=== PATIENT | male | born 1980 | race Caucasian/White ===

== ENCOUNTER 2018-06-20 17:58 | Inpatient (IN) | payer SELFPAY ==
--- NOTE | 2018-06-20 18:40 | ER Document Report ---
ED Medical Screen (RME) - General Chief Complaint: Abdominal Pain Stated Complaint: ABDOMINAL PAIN Time Seen by Provider: 06/20/18 18:35 Mode of Arrival: Medic Information source: Patient, Emergency Med Personnel Notes: Patient presents emergency department with complaints of abdominal pain for the past 3 days. Patient reports history of pancreatitis. Patient has had EtOH today. A few shots. Patient reports he also noted blood in his stool today. Abdomen is soft tender around the umbilicus. Denies fever diarrhea. Reports vomited this morning. I have greeted and performed a rapid initial assessment of this patient. A comprehensive ED assessment and evaluation of the patient, analysis of test results and completion of the medical decision making process will be conducted by additional ED providers. Dictation of this chart was performed using voice recognition software; therefore, there may be some unintended grammatical errors. TRAVEL OUTSIDE OF THE [place] IN LAST 30 DAYS: No - Related Data Allergies/Adverse Reactions: No Known Allergies Allergy (Unverified 06/20/18 18:34) Physical Exam - Vital signs Vitals: Temp Pulse Resp BP Pulse Ox 97.4 F 77 20 146/100 H 100 06/20/18 18:32 06/20/18 18:32 06/20/18 18:32 06/20/18 18:32 06/20/18 18:32 Course - Vital Signs Vital signs: Temp Pulse Resp BP Pulse Ox 97.4 F 77 20 146/100 H 100 06/20/18 18:32 06/20/18 18:32 06/20/18 18:32 06/20/18 18:32 06/20/18 18:32
[2018-06-20 19:21] LABS: HEMATOCRIT 42.9 % (37.9-51.0); HEMOGLOBIN 14.9 g/dL (13.5-17.0); MEAN CORPUSCULAR HEMOGLOBIN 32.6 pg (27.0-33.4); MEAN CORPUSCULAR HGB CONC 34.7 g/dL (32.0-36.0); MEAN CORPUSCULAR VOLUME 94 fl (80-97); PLATELET COUNT 354 10^3/uL (150-450); RED BLOOD COUNT 4.56 10^6/uL (4.35-5.55); RED CELL DISTRIBUTION WIDTH 12.1 % (11.5-14.0)
[2018-06-20 19:41] LABS: ALANINE AMINOTRANSFERASE 40 U/L (21-72); ALBUMIN 3.9 g/dL (3.5-5.0); ALKALINE PHOSPHATASE 106 U/L (38-126); AMYLASE 60 U/L (30-110); ANION GAP 10 (5-19); ASPARTATE AMINO TRANSFERASE 27 U/L (17-59); BILIRUBIN,DIRECT 0.3 mg/dL (0.0-0.4); BILIRUBIN,TOTAL 0.8 mg/dL (0.2-1.3); BLOOD UREA NITROGEN 12 mg/dL (7-20); CALCIUM 10.1 mg/dL (8.4-10.2); CARBON DIOXIDE 32 mmol/L (22-30); CHLORIDE 100 mmol/L (98-107); GLUCOSE 122 mg/dL (75-110); LIPASE 527.1 U/L (23-300); POTASSIUM 3.4 mmol/L (3.6-5.0); SODIUM 142.2 mmol/L (137-145); TOTAL PROTEIN 7.2 g/dL (6.3-8.2)
[2018-06-20 19:42] LABS: ALCOHOL < 10 mg/dL (NONE DETECTED)
[2018-06-20 19:44] LABS: ABSOLUTE LYMPHOCYTES# (MANUAL) 0.7 10^3/uL (0.5-4.7); ABSOLUTE MONOCYTES # (MANUAL) 0.8 10^3/uL (0.1-1.4); ABSOLUTE NEUTROPHILS# (MANUAL) 12.3 10^3/uL (1.7-8.2); BASOPHILS % (MANUAL) 0 % (0-2); EOSINOPHILS % (MANUAL) 1 % (0-6); LYMPHOCYTES % (MANUAL) 5 % (13-45); MONOCYTES % (MANUAL) 6 % (3-13); SEGMENTED NEUTROPHILS % (MAN) 88 % (42-78); TOTAL CELLS COUNTED 100
[2018-06-20 19:45] LABS: PLATELET COMMENT ADEQUATE; RBC MORPHOLOGY COMMENT NORMO-CYTIC/CHROMIC
--- NOTE | 2018-06-20 20:51 | RADIOLOGY REPORT (SQ) ---
EXAM DESCRIPTION: US ABDOMEN LIMITED COMPLETED DATE/TME: 06/20/2018 18:37 CLINICAL HISTORY: 38 years, Male, ABD PAIN, HX PANCREATITIS COMPARISON: None. TECHNIQUE: Newman scale sonography of the right upper quadrant abdomen. LIMITATIONS: None. FINDINGS: LIVER: Coarsened hepatic echogenicity with limited posterior acoustic transmission enlarged measuring up to 20.2 cm suggesting diffuse hepatic steatosis hepatomegaly. GALLBLADDER: Within normal limits without gallbladder wall thickening pericholecystic fluid or cholelithiasis. Positive sonographic Holland's sign. BILIARY TRACT: No significant abnormalities noted. The common bile duct measures 5 mm. PANCREAS: Limited evaluation secondary to partial obscuration by overlying bowel gas. Nonspecific focal area of hypoechogenicity present at the level of the proximal body of the pancreas measuring up to 3.1 cm concerning for pancreatic or peripancreatic lesion of uncertain etiology versus artifact. KIDNEY: The RIGHT kidney is within normal limits of morphology and echogenicity measuring 12.8 cm. IMPRESSION: 1. Suspected hepatic steatosis and hepatomegaly. 2. Nonspecific peripancreatic echogenicity which further evaluation with CT is recommended. 3. Positive sonographic Holland sign, however the gallbladder appears to be within normal limits without specific sonographic findings noted to suggest etiology of the patient's symptoms. copyright 2010 [employer]- All Rights Reserved
[2018-06-20] MEDS ORDERED: IPRATROPIUM/ALBUTEROL 0.5-2.5 MG/3 ML AMPUL NEB ONE (21:59)
[2018-06-20] MEDS ORDERED: ONDANSETRON HCL INJ/PF 4 MG/2 ML SDV IV ONE (22:53)
[2018-06-20] MEDS ORDERED: MORPHINE SULFATE 10 MG/ML INJ IV ONE (22:53)
[2018-06-20] MEDS: NORMAL SALINE 1000 ML 1,000 ML IV PRN (22:54)
--- NOTE | 2018-06-20 22:56 | ER Document Report ---
ED General - General Chief Complaint: Abdominal Pain Stated Complaint: ABDOMINAL PAIN Time Seen by Provider: 06/20/18 18:35 Mode of Arrival: Medic Information source: Patient, Emergency Med Personnel, [facility] Records Notes: 38-year-old male with history of alcoholism, pancreatitis, asthma presents with abdominal pain, nausea, vomiting that started this morning. Patient states abdominal pain is diffusely located, described as a constant throbbing pain. Patient does admit to drinking "one bottle of liquor per day". Last drink was yesterday. Patient denies any fever, chills, chest pain, dysuria, hematuria. TRAVEL OUTSIDE OF THE [place] IN LAST 30 DAYS: No - HPI Onset: This morning Onset/Duration: Gradual, Persistent, Worse Quality of pain: Throbbing Severity: Moderate Associated symptoms: Nausea, Vomiting, Other - Abdominal pain Exacerbated by: Food Relieved by: Denies Similar symptoms previously: Yes Recently seen / treated by doctor: Yes - Related Data Allergies/Adverse Reactions: No Known Allergies Allergy (Unverified 06/20/18 18:34) Past Medical History - General Information source: Patient, Emergency Med Personnel - Social History Smoking Status: Current Every Day Smoker Cigarette use (# per day): Yes - 15 Chew tobacco use (# tins/day): No Smoking Education Provided: Yes - Smoking cessation counseling was provided for 4 minutes at the bedside Frequency of alcohol use: Heavy Drug Abuse: Marijuana Lives with: Family Family History: Reviewed & Not Pertinent Patient has suicidal ideation: No Patient has homicidal ideation: No Renal/ Medical History: Denies: Hx Peritoneal Dialysis GI Medical History: Reports: Hx Pancreatitis Psychiatric Medical History: Reports: Hx Attention Deficit Hyperactivity Disorder Review of Systems - Review of Systems Notes: REVIEW OF SYSTEMS: CONSTITUTIONAL : Denies fever, chills, or sweats. Denies recent illness. Denies weight loss, recent hospitalizations. EENT: Denies visual changes, eye pain. Denies sore throat, oral lesions, difficulty swallowing. CARDIOVASCULAR: Denies chest pain. Denies palpitations. Denies lower extremity edema. RESPIRATORY: Denies cough. Denies shortness of breath, wheezing. GASTROINTESTINAL: Denies abdominal distention. Denies diarrhea. Denies blood in vomitus, stools, or per rectum. Denies black, tarry stools. Denies constipation. GENITOURINARY: Denies difficulty urinating, painful urination, frequency, blood in urine, testicular pain or penile discharge. MUSCULOSKELETAL: Denies back or neck pain or stiffness. Denies joint pain or swelling. SKIN: Denies rash, lesions or sores. HEMATOLOGIC : Denies easy bruising or bleeding. LYMPHATIC: Denies swollen glands. NEUROLOGICAL: Denies confusion or altered mental status. Denies loss of consciousness. Denies dizziness or lightheadedness. Denies headache. Denies weakness or paralysis. Denies problems difficulty with ambulation, slurred s peech. Denies sensory loss, numbness, or tingling. Denies seizures. PSYCHIATRIC: Denies anxiety or stress. Denies depression, suicidal ideation, or PHYSICAL EXAMINATION: GENERAL: Ill -appearing, well-nourished and in no acute distress. HEAD: Atraumatic, normocephalic. EYES: Pupils equal round and reactive to light, extraocular movements intact, sclera anicteric, conjunctiva are normal. ENT: Nares patent, oropharynx clear without exudates. Moist mucous membranes. NECK: Normal range of motion, supple without lymphadenopathy LUNGS: Breath sounds clear to auscultation bilaterally and equal. No wheezes rales or rhonchi. HEART: Regular rate and rhythm without murmurs ABDOMEN: Soft, generalized tenderness with palpation greater in the epigastric region, nondistended abdomen. No guarding, no rebound. No masses appreciated. Musculoskeletal: Normal range of motion, no pitting or edema. No cyanosis. NEUROLOGICAL: Cranial nerves grossly intact. Normal speech, normal gait. Norm al sensory, motor exams PSYCH: Normal mood, normal affect. SKIN: Warm, Dry, normal turgor, no rashes or lesions noted. Physical Exam - Vital signs Vitals: Temp Pulse Resp BP Pulse Ox 97.4 F 77 20 146/100 H 100 06/20/18 18:32 06/20/18 18:32 06/20/18 18:32 06/20/18 18:32 06/20/18 18:32 Course - Re-evaluation Re-evalutation: 06/21/18 02:52 Laboratory 06/20/18 06/20/18 06/21/18 18:56 18:56 00:35 WBC 14.0 H RBC 4.56 Hgb 14.9 Hct 42.9 MCV 94 MCH 32.6 MCHC 34.7 RDW 12.1 Plt Count 354 Total Counted 100 Seg Neutrophils % Not Reportable Seg Neuts % (Manual) 88 H Lymphocytes % Not Reportable Lymphocytes % (Manual) 5 L Monocytes % Not Reportable Monocytes % (Manual) 6 Eosinophils % Not Reportable Eosinophils % (Manual) 1 Basophils % Not Reportable Basophils % (Manual) 0 Absolute Neutrophils Not Reportable Abs Neuts (Manual) 12.3 H Absolute Lymphocytes Not Reportable Abs Lymphs (Manual) 0.7 Absolute Monocytes Not Reportable Abs Monocytes (Manual) 0.8 Absolute Eosinophils Not Reportable Absolute Eos (Manual) 0.1 Absolute Basophils Not Reportable Abs Basophils (Manual) 0.0 Platelet Comment ADEQUATE RBC Morph Comment NORMO-CYTIC/CHROMIC Sodium 142.2 Potassium 3.4 L Chloride 100 Carbon Dioxide 32 H Anion Gap 10 BUN 12 Creatinine 0.93 Est GFR ( Amer) > 60 Est GFR (Non-Af Amer) > 60 Glucose 122 H Calcium 10.1 Total Bilirubin 0.8 Direct Bilirubin 0.3 Neonat Total Bilirubin Not Reportable Neonat Direct Bilirubin Not Reportable Neonat Indirect Bili Not Reportable AST 27 ALT 40 Alkaline Phosphatase 106 Total Protein 7.2 Albumin 3.9 Amylase 60 Lipase 527.1 H 467.1 H Serum Alcohol < 10 Abdomen Ultrasound 06/20/18 18:37 IMPRESSION: 1. Suspected hepatic steatosis and hepatomegaly. 2. Nonspecific peripancreatic echogenicity which further evaluation with CT is recommended. 3. Positive sonographic Holland sign, however the gallbladder appears to be within normal limits without specific sonographic findings noted to suggest etiology of the patient's symptoms. copyright 2011 [employer]- All Rights Reserved Abdomen/Pelvis CT 06/20/18 22:52 IMPRESSION: 1. Extensive stranding about the upper abdominal mesentery surrounding the pancreatic head which appears to be edematous without clear findings to suggest mass, mass effect or fluid collection at this time. However, interval follow-up is recommended following interval resolution of suspected severe pancreatitis. TECHNICAL DOCUMENTATION: Quality ID # [id number]: Final reports with documentation of one or more dose reduction techniques (e.g., Automated exposure control, adjustment of the mA and/or kV according to patient size, use of iterative reconstruction technique) copyright 2011 [employer]- All Rights Reserved Temp Pulse Resp BP Pulse Ox 99.3 F 103 H 16 125/77 99 06/21/18 02:23 06/21/18 02:23 06/21/18 02:23 06/21/18 02:23 06/21/18 02:23 38-year-old male with history of alcoholic presents with complaint of abdominal pain, nausea, vomiting. Vital signs reviewed and patient is mildly tachycardic. He does appear ill but not toxic. He does appear mildly dehydrated. Lipase is elevated, CT of the abdomen shows extensive stranding of the upper abdomen with and edematous pancreatic head. Patient did receive IV fluids, morphine, Zofran. I did discuss admission with Dr. Mcmillan who has agreed to admit the patient to the [facility]. - Vital Signs Vital signs: Temp Pulse Resp BP Pulse Ox 99.3 F 103 H 16 125/77 99 06/21/18 02:23 06/21/18 02:23 06/21/18 02:23 06/21/18 02:23 06/21/18 02:23 - Laboratory Result Diagrams: 06/20/18 18:56 06/20/18 18:56 Laboratory results interpreted by me: 06/20/18 06/20/18 06/21/18 18:56 18:56 00:35 WBC 14.0 H Seg Neuts % (Manual) 88 H Lymphocytes % (Manual) 5 L Abs Neuts (Manual) 12.3 H Potassium 3.4 L Carbon Dioxide 32 H Glucose 122 H Lipase 527.1 H 467.1 H - Diagnostic Test Radiology reviewed: Image reviewed, Reports reviewed Discharge - Discharge Clinical Impression: Alcoholism Pancreatitis Qualifiers: Chronicity: acute Pancreatitis type: alcohol induced Acute pancreatitis complication: unspecified Qualified Code(s): K85.20 - Alcohol induced acute pancreatitis without necrosis or infection Hypertension Qualifiers: Hypertension type: unspecified Qualified Code(s): I10 - Essential (primary) hypertension Abdominal pain Qualifiers: Abdominal location: epigastric Qualified Code(s): R10.13 - Epigastric pain Condition: Fair Disposition: ADMITTED INPATIENT Admitting Provider: Hipolito (Hospitalist) Unit Admitted: [facility]
--- NOTE | 2018-06-20 23:45 | RADIOLOGY REPORT (SQ) ---
EXAM DESCRIPTION: CT ABDOMEN PELVIS WITH IV CONTRAST COMPLETED DATE/TME: 06/20/2018 22:52 CLINICAL HISTORY: 38 years, Male, h/o pancreatitis COMPARISON: None. TECHNIQUE: CT of the abdomen and pelvis was performed following intravenous administration of contrast. Oral contrast was not administered. Multiplanar reformatted images were provided. This exam was performed according to our departmental dose optimization program which includes use of automated exposure control, adjustment of the mA and/or kV according to patient size and/or use of iterative reconstruction technique. Images stored on PACS. All CT scanners at this facility use dose modulation, iterative reconstruction, and/or weight based dosing when appropriate to reduce radiation dose to as low as reasonably achievable (ALARA). [facility]: Dose Right [facility]: CareDose [facility]: Dose Right [facility]: Teradose 4D [facility]: Genomed LIMITATIONS: None. FINDINGS: Chest: Evaluation through the lung bases reveals no focal opacity, pleural effusion or pneumothorax. Heart size is within normal limits. No pericardial effusion. Abdomen and pelvis: The pancreatic head appears to be diffusely edematous with focal area of central hypoattenuation without clear findings to suggest mass, mass effect or fluid collection. Overall the pancreatic head appears to be decreased in attenuation and enhancement pattern in comparison to the pancreatic body compatible with edema and pancreatitis. Follow-up evaluation following interval resolution is recommended to exclude any underlying pancreatic lesion or developing fluid collection. Overall there is severe stranding and phlegmon throughout the mid abdominal mesentery with dependent areas of linear fluid collection along the RIGHT paracolic gutter some areas of which reveals a slightly higher than expected attenuation contents raising the possibility of infectious or hemorrhagic content. No organizing fluid collection is identified to suggest developing abscess formation, however central hypoattenuation at the level of the pancreatic head remains suspicious for phlegmon or developing fluid collection including abscess or pseudocyst. The adjacent vessels are patent. The liver, gallbladder, spleen, bilateral kidneys and bilateral adrenal glands are within normal limits. The vessels are patent and normal in caliber. No abdominopelvic lymph nodes are noted to be pathologically enlarged by CT measurement criteria. The bowel is within normal limits without abnormal bowel wall thickness or bowel dilation. No free air. No free abdominopelvic fluid collections. The appendix is within normal limits. The osseous structures are within normal limits. IMPRESSION: 1. Extensive stranding about the upper abdominal mesentery surrounding the pancreatic head which appears to be edematous without clear findings to suggest mass, mass effect or fluid collection at this time. However, interval follow-up is recommended following interval resolution of suspected severe pancreatitis. TECHNICAL DOCUMENTATION: Quality ID # [id number]: Final reports with documentation of one or more dose reduction techniques (e.g., Automated exposure control, adjustment of the mA and/or kV according to patient size, use of iterative reconstruction technique) copyright 2011 [employer]- All Rights Reserved
[2018-06-21] MEDS ORDERED: HYDROMORPHONE HCL INJ/PF 2 MG/ML AMPULE IV ONE (00:32)
[2018-06-21] MEDS ORDERED: METOCLOPRAMIDE HCL ORAL SOLN 10 MG/10 ML UDCUP PO ONE (00:32)
[2018-06-21] MEDS ORDERED: MAG HYDROX/AL HYDROX/SIMETH SUSP 30 ML UDCUP PO ONE (00:32)
[2018-06-21] MEDS ORDERED: LIDOCAINE 2% VISCOUS SOLN 20 ML UDCUP PO ONE (00:33)
[2018-06-21] MEDS: NORMAL SALINE 1000 ML 1,000 ML IV PRN (00:38)
[2018-06-21 02:30] LABS: APPEARANCE,URINE CLEAR; BILIRUBIN,URINE NEGATIVE (NEGATIVE); COLOR,URINE YELLOW; GLUCOSE, URINE NEGATIVE (NEGATIVE); KETONES,URINE TRACE mg/dL (NEGATIVE); LEUKOCYTE ESTERASE,URINE NEGATIVE (NEGATIVE); NITRITE,URINE NEGATIVE (NEGATIVE); PROTEIN,URINE NEGATIVE (NEGATIVE); UROBILINOGEN,URINE NEGATIVE mg/dL (<2.0)
[2018-06-21] MEDS ORDERED: TEMAZEPAM 15 MG CAPSULE PO PRN (03:24)
[2018-06-21] MEDS ORDERED: MAG HYDROX/AL HYDROX/SIMETH SUSP 30 ML UDCUP PO PRN (03:24)
[2018-06-21] MEDS ORDERED: MORPHINE SULFATE 10 MG/ML INJ IV PRN ×3 (03:29→07:14)
[2018-06-21] MEDS ORDERED: CHLORPROMAZINE HCL INJ 25 MG/1 ML AMPULE IV PRN ×2 (03:31→07:00)
[2018-06-21] MEDS: POTASSI CL 20 MEQ/D5-1/2NS 1L 1,000 ML IV PRN ×4 (03:59→22:03)
--- NOTE | 2018-06-21 04:56 | PDOC H&P ---
History of Present Illness Admission Date/PCP: 06/21/18 01:40 NO PCP Patient complains of: Abdominal pain History of Present Illness: JOHANNA BILLY is a 38 year old male who presented to the emergency room with acute abdominal pain. Patient admits that on the morning prior to admission he gradually developed a constant, acute, moderately intense, throbbing pain in his mid abdomen without localization or radiation. The pain was accompanied by constant nausea and episodic vomiting and was worsened by eating or drinking. He admits numerous prior similar episodes due to his chronic alcoholic pancreatitis and has not identified any other aggravating or ameliorating factors for his pain. His last drink was 06/19/2018. In the emergency room patient was noted to continue to have pain as described and was treated with narcotic analgesics and IV fluids. His ER evaluation showed evidence of pancreatitis on CT scan of the abdomen as well as elevated lipase with a normal amylase. Patient was subsequently admitted to the hospital for further evaluation and treatment. Past Medical History Cardiac Medical History: Denies: Coronary Artery Disease, DVT, Hyperlipidema, Hypertension, Pulmonary Embolism Pulmonary Medical History: Reports: Asthma Denies: Chronic Obstructive Pulmonary Disease (COPD) EENT Medical History: Denies: Cataracts, Eyes - Prescription lenses, Ears - Hearing aids Neurological Medical History: Denies: Hemorrhagic CVA, Ischemic CVA, Seizures Endocrine Medical History: Denies: Diabetes Mellitus Type 1, Diabetes Mellitus Type 2, Hyperthyroidism, Hypothyroidism Renal/ Medical History: Denies: Chronic Kidney Disease, Nephrolithiasis Malignancy Medical History: Reports: None GI Medical History: Reports: Other - Chronic alcoholic pancreatitis Denies: Cirrhosis, Gastroesophageal Reflux Disease, Hepatitis, Peptic Ulcer Disease Musculoskeltal Medical History: Denies: Arthritis, Gout Skin Medical History: Denies: Eczema, Psoriasis Psychiatric Medical History: Reports: Alcohol Dependency, Attention Deficit Hyperactivity Disorder, Substance Abuse, Tobacco Dependency Psychiatric History Note: No history of prior symptomatic alcohol withdrawal syndrome during periods of alcohol withdrawal due to illness or other factors. Traumatic Medical History: Reports: None Hematology: Denies: Anemia, Bleeding Tendencies Infectious Medical History: Reports: None Past Surgical History Past Surgical History: Reports: None Social History Information Source: Patient Lives with: Family Smoking Status: Current Every Day Smoker Frequency of Alcohol Use: Heavy - Consumes 1 L of liquor per day Last Alcohol Use: 06/19/18 Hx Recreational Drug Use: Yes Drugs: Marijuana Hx Prescription Drug Abuse: No - Advance Directive Resuscitation Status: Full Code Surrogate healthcare decision maker:: Lucía Cesar (significant other) Family History Family History: CAD, DM, Hypertension, Malignancy Parental Family History Reviewed: Yes Children Family History Reviewed: No Sibling(s) Family History Reviewed.: Yes Medication/Allergy Allergies/Adverse Reactions: No Known Allergies Allergy (Unverified 06/20/18 18:34) Review of Systems Constitutional: ABSENT: chills, fever(s) Eyes: ABSENT: visual disturbances, other - Ocular pain Ears: ABSENT: hearing changes, other - Ear pain Nose, Mouth, and Throat: ABSENT: mouth pain, sore throat Cardiovascular: ABSENT: chest pain, dyspnea on exertion, edema, orthropnea, palpitations Respiratory: ABSENT: cough, dyspnea, hemoptysis Gastrointestinal: PRESENT: as per HPI, abdominal pain, nausea, vomiting. ABSENT: constipation, diarrhea Genitourinary: ABSENT: dysuria, hematuria Musculoskeletal: ABSENT: back pain, joint swelling, muscle weakness Integumentary: ABSENT: pruritus, rash Neurological: ABSENT: confusion, convulsions, focal weakness, memory loss, s yncope Psychiatric: ABSENT: anxiety, depression Endocrine: ABSENT: cold intolerance, heat intolerance Hematologic/Lymphatic: ABSENT: easy bleeding, easy bruising Physical Exam Vital Signs: Temp Pulse Resp BP Pulse Ox 99.3 F 103 H 16 125/77 99 06/21/18 02:23 06/21/18 02:23 06/21/18 02:23 06/21/18 02:23 06/21/18 02:23 Intake & Output 06/19/18 06/20/18 06/21/18 23:59 23:59 23:59 Intake Total 1000 1000 Balance 1000 1000 Weight 91.5 kg General appearance: PRESENT: no acute distress, cooperative Head exam: ABSENT: atraumatic, normocephalic Eye exam: ABSENT: conjunctival injection, nystagmus, scleral icterus Ear exam: PRESENT: normal external ear exam. ABSENT: bleeding, drainage Mouth exam: PRESENT: dry mucosa, neck supple Neck exam: ABSENT: JVD, thyromegaly, tracheal deviation Respiratory exam: PRESENT: clear to auscultation joseline, symmetrical, unlabored Cardiovascular exam: PRESENT: RRR. ABSENT: clicks, gallop, rubs Pulses: PRESENT: normal radial pulses, normal dorsalis pedis pul Vascular exam: PRESENT: normal capillary refill. ABSENT: pallor GI/Abdominal exam: PRESENT: hypoactive bowel sounds, soft, tenderness - Generalized epigastric tenderness to palpation. ABSENT: distended Rectal exam: PRESENT: deferred Extremities exam: ABSENT: joint swelling, pedal edema Musculoskeletal exam: PRESENT: full ROM, normal inspection Neurological exam: PRESENT: alert, oriented to person, oriented to place, oriented to time, oriented to situation, CN II-XII grossly intact. ABSENT: motor sensory deficit Psychiatric exam: PRESENT: appropriate affect, normal mood Skin exam: PRESENT: dry, intact, warm. ABSENT: jaundice, rash, urticaria Results Laboratory Results: 06/20/18 18:56 06/20/18 18:56 06/20/18 06/20/18 06/21/18 18:56 18:56 00:35 WBC 14.0 H RBC 4.56 Hgb 14.9 Hct 42.9 MCV 94 MCH 32.6 MCHC 34.7 RDW 12.1 Plt Count 354 Seg Neutrophils % Not Reportable Lymphocytes % Not Reportable Monocytes % Not Reportable Eosinophils % Not Reportable Basophils % Not Reportable Absolute Neutrophils Not Reportable Absolute Lymphocytes Not Reportable Absolute Monocytes Not Reportable Absolute Eosinophils Not Reportable Absolute Basophils Not Reportable Sodium 142.2 Potassium 3.4 L Chloride 100 Carbon Dioxide 32 H Anion Gap 10 BUN 12 Creatinine 0.93 Est GFR ( Amer) > 60 Est GFR (Non-Af Amer) > 60 Glucose 122 H Calcium 10.1 Total Bilirubin 0.8 AST 27 ALT 40 Alkaline Phosphatase 106 Total Protein 7.2 Albumin 3.9 Amylase 60 Lipase 527.1 H 467.1 H Impressions: Abdomen Ultrasound 06/20/18 18:37 IMPRESSION: 1. Suspected hepatic steatosis and hepatomegaly. 2. Nonspecific peripancreatic echogenicity which further evaluation with CT is recommended. 3. Positive sonographic Holland sign, however the gallbladder appears to be within normal limits without specific sonographic findings noted to suggest etiology of the patient's symptoms. copyright 2011 [employer]- All Rights Reserved Abdomen/Pelvis CT 06/20/18 22:52 IMPRESSION: 1. Extensive stranding about the upper abdominal mesentery surrounding the pancreatic head which appears to be edematous without clear findings to suggest mass, mass effect or fluid collection at this time. However, interval follow-up is recommended following interval resolution of suspected severe pancreatitis. TECHNICAL DOCUMENTATION: Quality ID # 436: Final reports with documentation of one or more dose reduction techniques (e.g., Automated exposure control, adjustment of the mA and/or kV according to patient size, use of iterative reconstruction technique) copyright 2011 [employer]- All Rights Reserved Assessment and Plan - Diagnosis (1) Acute alcoholic pancreatitis Qualifiers: Acute pancreatitis complication: unspecified Qualified Code(s): K85.20 - Alcohol induced acute pancreatitis without necrosis or infection Is this a current diagnosis for this admission?: Yes Plan: Patient be treated with supportive measures and symptomatic cares. This will include IV fluids and analgesia utilizing morphine sulfate 3 to 7.5 mg IV every 2 hours as needed for abdominal pain on a sliding scale basis. Patient will be started on early feeding with supplemental pancreatic enzymes support. Patient will have daily CBCs, metabolic profiles, magnesium levels, amylase and lipase levels obtained. (2) Alcohol dependence with withdrawal Qualifiers: Complication of substance-induced condition: uncomplicated Qualified Code(s): F10.230 - Alcohol dependence with withdrawal, uncomplicated Is this a current diagnosis for this admission?: Yes Plan: Patient will be observed closely with Valium 10 mg IV every 1 hour as needed severe delirium, severe anxiety, severe tremor or seizure or hallucinations. (3) Tobacco use disorder, severe, dependence Is this a current diagnosis for this admission?: Yes Plan: Smoking cessation is advised and counseled briefly. A nicotine patch is available for the patient's use. (4) Adult ADHD (attention deficit hyperactivity disorder) Is this a current diagnosis for this admission?: Yes Plan: Patient will be continued on his usual medications for ADHD this and as he is able to tolerate taking orally. - Time Time Spent with patient: 25-34 minutes Smoking Cessation Education: 3 to 10 minutes Medications reviewed and adjusted accordingly: Yes Anticipated discharge: Home - Inpatient Certification Based on my medical assessment, after consideration of the patient's comorbidities, presenting symptoms, or acuity I expect that the services needed warrant INPATIENT care.: Yes I certify that my determination is in accordance with my understanding of Medicare's requirements for reasonable and necessary INPATIENT services [42 CFR 412.3e].: Yes Medical Necessity: Significant Comorbidiites Make Outpatient Treatment Too Risky, Need Close Monitoring Due to Risk of Patient Decompensation, Need For IV Fluids, Need For Continuous Telemetry Monitoring, Need for Pain Control, Risk of Complication if Not Cared For in Hospital, Risk of Diagnosis Which Will Require Inpatient Eval/Care/Monitoring
[2018-06-21] MEDS: HEPARIN SOD (PORCINE) 5,000 UNIT/ML 1 ML SYRINGE SUBCUT SCH ×3 (05:19→22:04)
[2018-06-21 06:42] LABS: URINE BARBITURATES SCREEN NEGATIVE; URINE BENZODIAZEPINES SCREEN NEGATIVE; URINE COCAINE SCREEN NEGATIVE; URINE METHADONE SCREEN NEGATIVE; URINE PHENCYCLIDINE SCREEN NEGATIVE
[2018-06-21 06:56] LABS: URINE MARIJUANA (THC) SCREEN UNCONFIRMED POSITIVE
[2018-06-21] MEDS: LIPASE/PROTEASE/AMYLASE 1 CAP CAPSULE.DR PO SCH ×3 (08:04→18:24)
[2018-06-21] MEDS: FAMOTIDINE 20 MG TABLET PO SCH ×4 (08:05→22:03)
[2018-06-21] MEDS: METOCLOPRAMIDE HCL 10 MG TABLET PO SCH ×4 (08:05→22:03)
[2018-06-21] MEDS: ACETAMINOPHEN 325 MG TABLET PO PRN (08:22)
[2018-06-21] MEDS: NICOTINE 21 MG/24 HR PATCH.TD24 TD PRN (08:23)
--- NOTE | 2018-06-21 08:31 | PDOC PROGRESS REPORT ---
Subjective Progress Note for:: 06/21/18 Subjective:: 38 year old male who presented to the emergency room with acute abdominal pain. Patient admits that on the morning prior to admission he gradually developed a constant, acute, moderately intense, throbbing pain in his mid abdomen without localization or radiation. The pain was accompanied by constant nausea and episodic vomiting and was worsened by eating or drinking. He admits numerous prior similar episodes due to his chronic alcoholic pancreatitis and has not identified any other aggravating or ameliorating factors for his pain. His last drink was 06/19/2018. In the emergency room patient was noted to continue to have pain as described and was treated with narcotic analgesics and IV fluids. His ER evaluation showed evidence of pancreatitis on CT scan of the abdomen as well as elevated lipase with a normal amylase. Patient was subsequently admitte d to the hospital for further evaluation and treatment. [id number]-old male admitted for abdominal pain found to have acute pancreatitis urine drug screen is positive for marijuana amphetamines. Also positive for opiates. Serum alcohol level is less than 10. This morning is complaining of sinus pressure sinus problems requesting for nasal spray and also for inhaler for breathing. Is also complaining of pain presently on a clear liquid diet. No acute events since the admission. Reason For Visit: ACUTE RECURRENT ALCOHOLIC PANCREATITIS Physical Exam Vital Signs: Temp Pulse Resp BP Pulse Ox 99.5 F 103 H 20 145/81 H 95 06/21/18 02:57 06/21/18 07:00 06/21/18 02:57 06/21/18 02:57 06/21/18 02:57 Intake & Output 06/20/18 06/21/18 06/22/18 06:59 06:59 06:59 Intake Total 1999 Balance 1999 Weight 90.4 kg General appearance: PRESENT: other - Moderate distress Eye exam: PRESENT: PERRLA Mouth exam: PRESENT: moist, tongue midline Neck exam: ABSENT: carotid bruit, JVD, lymphadenopathy, thyromegaly Respiratory exam: PRESENT: clear to auscultation joseline. ABSENT: rales, rhonchi, wheezes Cardiovascular exam: PRESENT: tachycardia GI/Abdominal exam: PRESENT: other - Complaining of abdominal pain voluntary guarding and rigidity. Bowel sounds are sluggish. Rectal exam: PRESENT: deferred Extremities exam: PRESENT: full ROM. ABSENT: calf tenderness, clubbing, pedal edema Neurological exam: PRESENT: alert, awake, oriented to person, oriented to place, oriented to time, oriented to situation, CN II-XII grossly intact. ABSENT: motor sensory deficit Psychiatric exam: PRESENT: appropriate affect, normal mood. ABSENT: homicidal ideation, suicidal ideation Results Laboratory Results: 06/20/18 18:56 06/20/18 18:56 06/20/18 06/20/18 06/21/18 18:56 18:56 00:35 WBC 14.0 H RBC 4.56 Hgb 14.9 Hct 42.9 MCV 94 MCH 32.6 MCHC 34.7 RDW 12.1 Plt Count 354 Seg Neutrophils % Not Reportable Lymphocytes % Not Reportable Monocytes % Not Reportable Eosinophils % Not Reportable Basophils % Not Reportable Absolute Neutrophils Not Reportable Absolute Lymphocytes Not Reportable Absolute Monocytes Not Reportable Absolute Eosinophils Not Reportable Absolute Basophils Not Reportable Sodium 142.2 Potassium 3.4 L Chloride 100 Carbon Dioxide 32 H Anion Gap 10 BUN 12 Creatinine 0.93 Est GFR ( Amer) > 60 Est GFR (Non-Af Amer) > 60 Glucose 122 H Calcium 10.1 Total Bilirubin 0.8 AST 27 ALT 40 Alkaline Phosphatase 106 Total Protein 7.2 Albumin 3.9 Amylase 60 Lipase 527.1 H 467.1 H Urine Color Urine Appearance Urine pH Ur Specific Brandon Urine Protein Urine Glucose (UA) Urine Ketones Urine Blood Urine Nitrite Ur Leukocyte Esterase Urine WBC (Auto) Urine RBC (Auto) 06/21/18 01:53 WBC RBC Hgb Hct MCV MCH MCHC RDW Plt Count Seg Neutrophils % Lymphocytes % Monocytes % Eosinophils % Basophils % Absolute Neutrophils Absolute Lymphocytes Absolute Monocytes Absolute Eosinophils Absolute Basophils Sodium Potassium Chloride Carbon Dioxide Anion Gap BUN Creatinine Est GFR ( Amer) Est GFR (Non-Af Amer) Glucose Calcium Total Bilirubin AST ALT Alkaline Phosphatase Total Protein Albumin Amylase Lipase Urine Color YELLOW Urine Appearance CLEAR Urine pH 5.0 Ur Specific Brandon 1.050 Urine Protein NEGATIVE Urine Glucose (UA) NEGATIVE Urine Ketones TRACE H Urine Blood NEGATIVE Urine Nitrite NEGATIVE Ur Leukocyte Esterase NEGATIVE Urine WBC (Auto) 4 Urine RBC (Auto) 1 Impressions: Abdomen Ultrasound 06/20/18 18:37 IMPRESSION: 1. Suspected hepatic steatosis and hepatomegaly. 2. Nonspecific peripancreatic echogenicity which further evaluation with CT is recommended. 3. Positive sonographic Holland sign, however the gallbladder appears to be within normal limits without specific sonographic findings noted to suggest etiology of the patient's symptoms. copyright 2010 [employer]- All Rights Reserved Abdomen/Pelvis CT 06/20/18 22:52 IMPRESSION: 1. Extensive stranding about the upper abdominal mesentery surrounding the pancreatic head which appears to be edematous without clear findings to suggest mass, mass effect or fluid collection at this time. However, interval follow-up is recommended following interval resolution of suspected severe pancreatitis. TECHNICAL DOCUMENTATION: Quality ID # 436: Final reports with documentation of one or more dose reduction techniques (e.g., Automated exposure control, adjustment of the mA and/or kV according to patient size, use of iterative reconstruction technique) copyright 2010 [employer]- All Rights Reserved Assessment and Plan - Diagnosis (1) Acute alcoholic pancreatitis Qualifiers: Acute pancreatitis complication: unspecified Qualified Code(s): K85.20 - Alcohol induced acute pancreatitis without necrosis or infection Is this a current diagnosis for this admission?: Yes Plan: Patient be treated with supportive measures and symptomatic cares. This will include IV fluids and analgesia utilizing morphine sulfate 3 to 7.5 mg IV every 2 hours as needed for abdominal pain on a sliding scale basis. Patient will be started on early feeding with supplemental pancreatic enzymes support. Patient will have daily CBCs, metabolic profiles, magnesium levels, amylase and lipase levels obtained. 06/21/2018-patient admitted for severe abdominal pain found to have a p ancreatitis. Is admitting using alcohol on daily basis. Last drink 24 hours prior to the ER of arrival. Watch for the DTs. Start on Ativan 1 mg IV every 2 hours as needed. He is also on Valium. to start on on banana bag daily basis. (2) Alcohol dependence with withdrawal Qualifiers: Complication of substance-induced condition: uncomplicated Qualified Code(s): F10.230 - Alcohol dependence with withdrawal, uncomplicated Is this a current diagnosis for this admission?: Yes Plan: Patient will be observed closely with Valium 10 mg IV every 1 hour as needed severe delirium, severe anxiety, severe tremor or seizure or hallucinations. 06/21/2018-patient is presently on Valium 10 mg IV every hour as needed and also started on Ativan 1 mg IV every 2 hours as needed. To watch for the DTs. (3) Tobacco use disorder, severe, dependence Is this a current diagnosis for this admission?: Yes Plan: Smoking cessation is advised and counseled briefly. A nicotine patch is available for the patient's use. (4) Adult ADHD (attention deficit hyperactivity disorder) Is this a current diagnosis for this admission?: Yes Plan: Patient will be continued on his usual medications for ADHD this and as he is able to tolerate taking orally. - Time Time Spent with patient: 25-34 minutes Anticipated discharge: Home
[2018-06-21] MEDS: LEVALBUTEROL HCL NEB 0.63 MG/3 ML AMPUL NEB PRN ×2 (08:40→20:02)
[2018-06-21 09:40] LABS: ABSOLUTE EOSINOPHILS # (AUTO) 0.1 10^3/uL (0.0-0.6); ABSOLUTE LYMPHOCYTES (AUTO) 0.8 10^3/uL (0.5-4.7); ABSOLUTE MONOCYTES (AUTO) 0.7 10^3/uL (0.1-1.4); ABSOLUTE NEUT (AUTO) 12.7 10^3/uL (1.7-8.2); BASOPHILS % (AUTO) 0.1 % (0-2); EOSINOPHILS % (AUTO) 0.5 % (0-6); HEMATOCRIT 40.8 % (37.9-51.0); LYMPHOCYTES % (AUTO) 5.8 % (13-45); MEAN CORPUSCULAR HEMOGLOBIN 32.1 pg (27.0-33.4); MEAN CORPUSCULAR HGB CONC 34.3 g/dL (32.0-36.0); MEAN CORPUSCULAR VOLUME 94 fl (80-97); MONOCYTES % (AUTO) 4.6 % (3-13); PLATELET COUNT 291 10^3/uL (150-450); RED BLOOD COUNT 4.36 10^6/uL (4.35-5.55); RED CELL DISTRIBUTION WIDTH 12.2 % (11.5-14.0); TOTAL CELLS COUNTED % (AUTO) 100 %; WHITE BLOOD COUNT 14.2 10^3/uL (4.0-10.5)
[2018-06-21] MEDS: DOCUSATE SODIUM 100 MG CAPSULE PO SCH ×2 (09:57→18:24)
[2018-06-21] MEDS: DIAZEPAM INJ 10 MG/2 ML DISP.SYRIN IV PRN ×2 (09:58→18:24)
[2018-06-21 10:02] LABS: ALANINE AMINOTRANSFERASE 21 U/L (21-72); ALBUMIN 3.1 g/dL (3.5-5.0); ALKALINE PHOSPHATASE 83 U/L (38-126); ANION GAP 10 (5-19); ASPARTATE AMINO TRANSFERASE 15 U/L (17-59); BILIRUBIN,DIRECT 0.2 mg/dL (0.0-0.4); BILIRUBIN,TOTAL 0.8 mg/dL (0.2-1.3); BLOOD UREA NITROGEN 8 mg/dL (7-20); CARBON DIOXIDE 27 mmol/L (22-30); CHLORIDE 100 mmol/L (98-107); GLUCOSE 144 mg/dL (75-110); POTASSIUM 3.4 mmol/L (3.6-5.0); SODIUM 137.4 mmol/L (137-145)
[2018-06-21] MEDS: MORPHINE SULFATE 10 MG/ML INJ IV PRN ×6 (11:36→22:02)
[2018-06-21] MEDS: CROMOLYN SODIUM NASAL SPRAY (5.2 MG/SPRAY) 26 ML NASL SCH (11:37)
[2018-06-21] MEDS: LORAZEPAM INJ 2 MG/1 ML VIAL IV PRN ×3 (13:30→22:03)
[2018-06-22] MEDS: MORPHINE SULFATE 10 MG/ML INJ IV PRN ×7 (01:46→19:44)
[2018-06-22] MEDS: LORAZEPAM INJ 2 MG/1 ML VIAL IV PRN ×6 (01:46→19:45)
[2018-06-22] MEDS: POTASSI CL 20 MEQ/D5-1/2NS 1L 1,000 ML IV PRN ×2 (04:08→11:58)
[2018-06-22] MEDS: DIAZEPAM INJ 10 MG/2 ML DISP.SYRIN IV PRN ×3 (04:08→18:22)
[2018-06-22] MEDS: HEPARIN SOD (PORCINE) 5,000 UNIT/ML 1 ML SYRINGE SUBCUT SCH ×3 (05:47→22:40)
[2018-06-22 06:39] LABS: ABSOLUTE BASOPHILS # (AUTO) 0.1 10^3/uL (0.0-0.2); ABSOLUTE EOSINOPHILS # (AUTO) 0.1 10^3/uL (0.0-0.6); ABSOLUTE LYMPHOCYTES (AUTO) 1.5 10^3/uL (0.5-4.7); ABSOLUTE MONOCYTES (AUTO) 0.8 10^3/uL (0.1-1.4); ABSOLUTE NEUT (AUTO) 12.1 10^3/uL (1.7-8.2); BASOPHILS % (AUTO) 0.4 % (0-2); EOSINOPHILS % (AUTO) 0.8 % (0-6); HEMATOCRIT 42.1 % (37.9-51.0); HEMOGLOBIN 14.3 g/dL (13.5-17.0); LYMPHOCYTES % (AUTO) 10.4 % (13-45); MEAN CORPUSCULAR VOLUME 94 fl (80-97); MONOCYTES % (AUTO) 5.8 % (3-13); PLATELET COUNT 270 10^3/uL (150-450); RED BLOOD COUNT 4.47 10^6/uL (4.35-5.55); RED CELL DISTRIBUTION WIDTH 12.2 % (11.5-14.0); SEGMENTED NEUTROPHILS % (AUTO) 82.6 % (42-78); TOTAL CELLS COUNTED % (AUTO) 100 %; WHITE BLOOD COUNT 14.6 10^3/uL (4.0-10.5)
[2018-06-22 07:06] LABS: ANION GAP 11 (5-19); BLOOD UREA NITROGEN 5 mg/dL (7-20); CALCIUM 8.9 mg/dL (8.4-10.2); CARBON DIOXIDE 26 mmol/L (22-30); CHLORIDE 100 mmol/L (98-107); GLUCOSE 100 mg/dL (75-110); LIPASE 94.7 U/L (23-300); POTASSIUM 3.7 mmol/L (3.6-5.0); SODIUM 136.8 mmol/L (137-145)
[2018-06-22 07:15] LABS: AMYLASE < 30 U/L (30-110)
[2018-06-22 07:22] LABS: FREE T3 2.91 pg/mL (2.77-5.27); FREE T4 (FREE THYROXINE) 0.97 ng/dL (0.78-2.19)
[2018-06-22] MEDS: FAMOTIDINE 20 MG TABLET PO SCH ×4 (07:35→22:40)
[2018-06-22] MEDS: LIPASE/PROTEASE/AMYLASE 1 CAP CAPSULE.DR PO SCH ×3 (07:35→16:59)
[2018-06-22 07:36] LABS: THYROID STIMULATING HORMONE 4.04 uIU/mL (0.47-4.68)
[2018-06-22] MEDS: METOCLOPRAMIDE HCL 10 MG TABLET PO SCH ×4 (07:36→22:41)
--- NOTE | 2018-06-22 08:16 | PDOC PROGRESS REPORT ---
Subjective Progress Note for:: 06/22/18 Subjective:: 38 year old male who presented to the emergency room with acute abdominal pain. Patient admits that on the morning prior to admission he gradually developed a constant, acute, moderately intense, throbbing pain in his mid abdomen without localization or radiation. The pain was accompanied by constant nausea and episodic vomiting and was worsened by eating or drinking. He admits numerous prior similar episodes due to his chronic alcoholic pancreatitis and has not identified any other aggravating or ameliorating factors for his pain. His last drink was 06/19/2018. In the emergency room patient was noted to continue to have pain as described and was treated with narcotic analgesics and IV fluids. His ER evaluation showed evidence of pancreatitis on CT scan of the abdomen as well as elevated lipase with a normal amylase. Patient was subsequently admitte d to the hospital for further evaluation and treatment. 06/[id number]-lyvg-old male admitted for abdominal pain found to have acute pancreatitis urine drug screen is positive for marijuana amphetamines. Also positive for opiates. Serum alcohol level is less than 10. This morning is complaining of sinus pressure sinus problems requesting for nasal spray and also for inhaler for breathing. Is also complaining of pain presently on a clear liquid diet. No acute events since the admission. 06/22/2018-no acute events in the last 24 hours. T-max is 99. Able to tolerate the liquid diet. Comfortably sleeping in the bed woke up on calling and states he is in pain. Plan is to advance the diet today. Repeat lipase level today is 94.7 within normal limits. Potassium is 3.7. Creatinine is 0.74. WBC is 14.6. Plan to repeat the labs tomorrow. Reason For Visit: ACUTE RECURRENT ALCOHOLIC PANCREATITIS Physical Exam Vital Signs: Temp Pulse Resp BP Pulse Ox 99 F 108 H 18 146/94 H 98 06/22/18 03:17 06/22/18 07:00 06/22/18 03:01 06/22/18 03:01 06/22/18 03:01 Intake & Output 06/21/18 06/22/18 06/23/18 06:59 06:59 06:59 Intake Total 1999 4806 Balance 1999 4806 Weight 90.4 kg 94.6 kg General appearance: PRESENT: no acute distress, obese Head exam: PRESENT: atraumatic Eye exam: PRESENT: PERRLA Mouth exam: PRESENT: moist, tongue midline Neck exam: ABSENT: carotid bruit, JVD, lymphadenopathy, thyromegaly Respiratory exam: PRESENT: clear to auscultation joseline. ABSENT: rales, rhonchi, wheezes Cardiovascular exam: PRESENT: RRR. ABSENT: diastolic murmur, rubs, systolic murmur GI/Abdominal exam: PRESENT: normal bowel sounds, soft. ABSENT: distended, guar ding, mass, organolmegaly, rebound, tenderness Rectal exam: PRESENT: deferred Extremities exam: PRESENT: full ROM. ABSENT: calf tenderness, clubbing, pedal edema Neurological exam: PRESENT: alert, awake, oriented to person, oriented to place, oriented to time, oriented to situation, CN II-XII grossly intact. ABSENT: motor sensory deficit Psychiatric exam: PRESENT: appropriate affect, normal mood. ABSENT: homicidal ideation, suicidal ideation Results Laboratory Results: 06/22/18 05:34 06/22/18 05:34 06/21/18 06/21/18 06/22/18 09:20 09:20 05:34 WBC 14.2 H 14.6 H RBC 4.36 4.47 Hgb 14.0 14.3 Hct 40.8 42.1 MCV 94 94 MCH 32.1 32.0 MCHC 34.3 34.0 RDW 12.2 12.2 Plt Count 291 270 Seg Neutrophils % 89.0 H 82.6 H Lymphocytes % 5.8 L 10.4 L Monocytes % 4.6 5.8 Eosinophils % 0.5 0.8 Basophils % 0.1 0.4 Absolute Neutrophils 12.7 H 12.1 H Absolute Lymphocytes 0.8 1.5 Absolute Monocytes 0.7 0.8 Absolute Eosinophils 0.1 0.1 Absolute Basophils 0.0 0.1 Sodium 137.4 Potassium 3.4 L Chloride 100 Carbon Dioxide 27 Anion Gap 10 BUN 8 Creatinine 0.83 Est GFR ( Amer) > 60 Est GFR (Non-Af Amer) > 60 Glucose 144 H Calcium 9.0 Magnesium Total Bilirubin 0.8 AST 15 L ALT 21 Alkaline Phosphatase 83 Total Protein 6.0 L Albumin 3.1 L Amylase Lipase TSH Free T4 Free T3 pg/mL 06/22/18 06/22/18 05:34 05:34 WBC RBC Hgb Hct MCV MCH MCHC RDW Plt Count Seg Neutrophils % Lymphocytes % Monocytes % Eosinophils % Basophils % Absolute Neutrophils Absolute Lymphocytes Absolute Monocytes Absolute Eosinophils Absolute Basophils Sodium 136.8 L Potassium 3.7 Chloride 100 Carbon Dioxide 26 Anion Gap 11 BUN 5 L Creatinine 0.74 Est GFR ( Amer) > 60 Est GFR (Non-Af Amer) > 60 Glucose 100 Calcium 8.9 Magnesium 1.9 Total Bilirubin AST ALT Alkaline Phosphatase Total Protein Albumin Amylase < 30 L Lipase 94.7 TSH 4.04 Free T4 0.97 Free T3 pg/mL 2.91 Impressions: Abdomen Ultrasound 06/20/18 18:37 IMPRESSION: 1. Suspected hepatic steatosis and hepatomegaly. 2. Nonspecific peripancreatic echogenicity which further evaluation with CT is recommended. 3. Positive sonographic Holland sign, however the gallbladder appears to be within normal limits without specific sonographic findings noted to suggest etiology of the patient's symptoms. copyright 2010 [employer]- All Rights Reserved Abdomen/Pelvis CT 06/20/18 22:52 IMPRESSION: 1. Extensive stranding about the upper abdominal mesentery surrounding the pancreatic head which appears to be edematous without clear findings to suggest mass, mass effect or fluid collection at this time. However, interval follow-up is recommended following interval resolution of suspected severe pancreatitis. TECHNICAL DOCUMENTATION: Quality ID # 436: Final reports with documentation of one or more dose reduction techniques (e.g., Automated exposure control, adjustment of the mA and/or kV according to patient size, use of iterative reconstruction technique) copyright 2010 [employer]- All Rights Reserved Assessment and Plan - Diagnosis (1) Acute alcoholic pancreatitis Qualifiers: Acute pancreatitis complication: unspecified Qualified Code(s): K85.20 - Alcohol induced acute pancreatitis without necrosis or infection Is this a current diagnosis for this admission?: Yes Plan: Patient be treated with supportive measures and symptomatic cares. This will include IV fluids and analgesia utilizing morphine sulfate 3 to 7.5 mg IV every 2 hours as needed for abdominal pain on a sliding scale basis. Patient will be started on early feeding with supplemental pancreatic enzymes support. Patient will have daily CBCs, metabolic profiles, magnesium levels, amylase and lipase levels obtained. 06/21/2018-patient admitted for severe abdominal pain found to have a pancreatitis. Is admitting using alcohol on daily basis. Last drink 24 hours prior to the ER of arrival. Watch for the DTs. Start on Ativan 1 mg IV every 2 hours as needed. He is also on Valium. to start on on banana bag daily basis. 06/22/2018-lipase level is 94.7 today able to tolerate liquid diet. Presently on IV Ativan and IV morphine. He is also on IV Valium. Plan to advance the diet to low-sodium diet today. Decreased IV fluids to 75 cc/h today. Plan to discharge him in 24 to hours to 48 hours if everything is okay. (2) Alcohol dependence with withdrawal Qualifiers: Complication of substance-induced condition: uncomplicated Qualified Code(s): F10.230 - Alcohol dependence with withdrawal, uncomplicated Is this a current diagnosis for this admission?: Yes Plan: Patient will be observed closely with Valium 10 mg IV every 1 hour as needed severe delirium, severe anxiety, severe tremor or seizure or hallucinations. 06/21/2018-patient is presently on Valium 10 mg IV every hour as needed and also started on Ativan 1 mg IV every 2 hours as needed. To watch for the DTs. 06/22/2018-patient is on Valium 10 mg IV every hour as needed and also on Ativan 1 mg IV every 2 hours as needed. To watch for the DTs. Also decrease the dose of Valium to 5 mg every hour. (3) Tobacco use disorder, severe, dependence Is this a current diagnosis for this admission?: Yes Plan: Smoking cessation is advised and counseled briefly. A nicotine patch is available for the patient's use. (4) Adult ADHD (attention deficit hyperactivity disorder) Is this a current diagnosis for this admission?: Yes Plan: Patient will be continued on his usual medications for ADHD this and as he is able to tolerate taking orally. (5) Hypertension Qualifiers: Hypertension type: unspecified Qualified Code(s): I10 - Essential (primary) hypertension Is this a current diagnosis for this admission?: No Plan: 06/22/2018-blood pressure is 146/94 today. Presently on IV fluids at 167/h plan to decrease the fluids to 75 cc/h today. Continue to closely monitor the blood pressures. - Time Time Spent with patient: 15-24 minutes Smoking Cessation Education: over 10 minutes Medications reviewed and adjusted accordingly: Yes Anticipated discharge: Home
[2018-06-22] MEDS: DOCUSATE SODIUM 100 MG CAPSULE PO SCH ×2 (11:56→18:02)
[2018-06-22] MEDS: CROMOLYN SODIUM NASAL SPRAY (5.2 MG/SPRAY) 26 ML NASL SCH (11:57)
[2018-06-22] MEDS: NICOTINE 21 MG/24 HR PATCH.TD24 TD PRN (12:05)
[2018-06-22] MEDS: ONDANSETRON HCL INJ/PF 4 MG/2 ML SDV IV PRN ×2 (18:22→22:40)
[2018-06-22] MEDS: ACETAMINOPHEN 325 MG TABLET PO PRN (19:48)
[2018-06-23] MEDS: MORPHINE SULFATE 10 MG/ML INJ IV PRN ×6 (00:28→22:35)
[2018-06-23] MEDS: LORAZEPAM INJ 2 MG/1 ML VIAL IV PRN ×3 (00:29→06:32)
[2018-06-23] MEDS: ACETAMINOPHEN 325 MG TABLET PO PRN ×3 (01:54→21:11)
[2018-06-23] MEDS: ONDANSETRON HCL INJ/PF 4 MG/2 ML SDV IV PRN ×2 (03:20→15:40)
[2018-06-23] MEDS: NICOTINE 21 MG/24 HR PATCH.TD24 TD PRN (03:32)
[2018-06-23] MEDS: POTASSI CL 20 MEQ/D5-1/2NS 1L 1,000 ML IV PRN (04:37)
[2018-06-23 05:27] LABS: ABSOLUTE EOSINOPHILS # (AUTO) 0.1 10^3/uL (0.0-0.6); ABSOLUTE LYMPHOCYTES (AUTO) 0.9 10^3/uL (0.5-4.7); ABSOLUTE MONOCYTES (AUTO) 0.6 10^3/uL (0.1-1.4); ABSOLUTE NEUT (AUTO) 8.5 10^3/uL (1.7-8.2); BASOPHILS % (AUTO) 0.4 % (0-2); EOSINOPHILS % (AUTO) 1.2 % (0-6); HEMATOCRIT 40.1 % (37.9-51.0); HEMOGLOBIN 13.8 g/dL (13.5-17.0); LYMPHOCYTES % (AUTO) 8.6 % (13-45); MEAN CORPUSCULAR HEMOGLOBIN 32.3 pg (27.0-33.4); MEAN CORPUSCULAR HGB CONC 34.4 g/dL (32.0-36.0); MEAN CORPUSCULAR VOLUME 94 fl (80-97); MONOCYTES % (AUTO) 6.1 % (3-13); PLATELET COUNT 297 10^3/uL (150-450); RED BLOOD COUNT 4.28 10^6/uL (4.35-5.55); RED CELL DISTRIBUTION WIDTH 11.9 % (11.5-14.0); SEGMENTED NEUTROPHILS % (AUTO) 83.7 % (42-78); TOTAL CELLS COUNTED % (AUTO) 100 %; WHITE BLOOD COUNT 10.1 10^3/uL (4.0-10.5)
[2018-06-23 05:47] LABS: ALANINE AMINOTRANSFERASE 26 U/L (21-72); ALBUMIN 2.9 g/dL (3.5-5.0); ALKALINE PHOSPHATASE 105 U/L (38-126); AMYLASE 35 U/L (30-110); ANION GAP 9 (5-19); ASPARTATE AMINO TRANSFERASE 21 U/L (17-59); BILIRUBIN,DIRECT 0.5 mg/dL (0.0-0.4); BILIRUBIN,TOTAL 1.3 mg/dL (0.2-1.3); BLOOD UREA NITROGEN 6 mg/dL (7-20); CALCIUM 9.2 mg/dL (8.4-10.2); CARBON DIOXIDE 29 mmol/L (22-30); CHLORIDE 100 mmol/L (98-107); GLUCOSE 105 mg/dL (75-110); LIPASE 116.3 U/L (23-300); POTASSIUM 3.7 mmol/L (3.6-5.0); TOTAL PROTEIN 5.8 g/dL (6.3-8.2)
[2018-06-23] MEDS: HEPARIN SOD (PORCINE) 5,000 UNIT/ML 1 ML SYRINGE SUBCUT SCH ×3 (06:32→21:50)
--- NOTE | 2018-06-23 08:26 | PDOC PROGRESS REPORT ---
Subjective Progress Note for:: 06/23/18 Subjective:: 38 year old male who presented to the emergency room with acute abdominal pain. Patient admits that on the morning prior to admission he gradually developed a constant, acute, moderately intense, throbbing pain in his mid abdomen without localization or radiation. The pain was accompanied by constant nausea and episodic vomiting and was worsened by eating or drinking. He admits numerous prior similar episodes due to his chronic alcoholic pancreatitis and has not identified any other aggravating or ameliorating factors for his pain. His last drink was 06/19/2018. In the emergency room patient was noted to continue to have pain as described and was treated with narcotic analgesics and IV fluids. His ER evaluation showed evidence of pancreatitis on CT scan of the abdomen as well as elevated lipase with a normal amylase. Patient was subsequently admitte d to the hospital for further evaluation and treatment. 06/[id number]-xuvc-old male admitted for abdominal pain found to have acute pancreatitis urine drug screen is positive for marijuana amphetamines. Also positive for opiates. Serum alcohol level is less than 10. This morning is complaining of sinus pressure sinus problems requesting for nasal spray and also for inhaler for breathing. Is also complaining of pain presently on a clear liquid diet. No acute events since the admission. 06/22/2018-no acute events in the last 24 hours. T-max is 99. Able to tolerate the liquid diet. Comfortably sleeping in the bed woke up on calling and states he is in pain. Plan is to advance the diet today. Repeat lipase level today is 94.7 within normal limits. Potassium is 3.7. Creatinine is 0.74. WBC is 14.6. Plan to repeat the labs tomorrow. 06/23/2018-no acute events in the last 24 hours. Patient is afebrile. T-max is 98.1. Plan is to cut down his morphine to 1 mg every 4 as needed and to stop lorazepam. Plan to continue to resign 25 mg every 8 hours as needed and Valium 5 mg every 4 hours as needed for now. Patient is going to be downgraded to medical floor. Stop IV fluids today. he Able to tolerate the regular diet. Reason For Visit: ACUTE RECURRENT ALCOHOLIC PANCREATITIS Physical Exam Vital Signs: Temp Pulse Resp BP Pulse Ox 98.1 F 97 18 142/94 H 95 06/23/18 03:15 06/23/18 03:15 06/23/18 03:15 06/23/18 03:15 06/23/18 03:15 Intake & Output 06/22/18 06/23/18 06/24/18 06:59 06:59 06:59 Intake Total 4806 3338 Balance 4806 3338 Weight 94.6 kg 93.3 kg General appearance: PRESENT: no acute distress Head exam: PRESENT: atraumatic Eye exam: PRESENT: PERRLA Mouth exam: PRESENT: moist, tongue midline Neck exam: ABSENT: carotid bruit, JVD, lymphadenopathy, thyromegaly Respiratory exam: PRESENT: clear to auscultation joseline. ABSENT: rales, rhonchi, wheezes Cardiovascular exam: PRESENT: RRR. ABSENT: diastolic murmur, rubs, systolic murmur GI/Abdominal exam: PRESENT: normal bowel sounds, soft. ABSENT: distended, guarding, mass, organolmegaly, rebound, tenderness Rectal exam: PRESENT: deferred Extremities exam: PRESENT: full ROM. ABSENT: calf tenderness, clubbing, pedal edema Neurological exam: PRESENT: alert, awake, oriented to person, oriented to place, oriented to time, oriented to situation, CN II-XII grossly intact. ABSENT: motor sensory deficit Psychiatric exam: PRESENT: appropriate affect, normal mood. ABSENT: homicidal ideation, suicidal ideation Results Laboratory Results: 06/23/18 04:24 06/23/18 04:24 06/23/18 06/23/18 04:24 04:24 WBC 10.1 RBC 4.28 L Hgb 13.8 Hct 40.1 MCV 94 MCH 32.3 MCHC 34.4 RDW 11.9 Plt Count 297 Seg Neutrophils % 83.7 H Lymphocytes % 8.6 L Monocytes % 6.1 Eosinophils % 1.2 Basophils % 0.4 Absolute Neutrophils 8.5 H Absolute Lymphocytes 0.9 Absolute Monocytes 0.6 Absolute Eosinophils 0.1 Absolute Basophils 0.0 Sodium 138.0 Potassium 3.7 Chloride 100 Carbon Dioxide 29 Anion Gap 9 BUN 6 L Creatinine 0.69 Est GFR ( Amer) > 60 Est GFR (Non-Af Amer) > 60 Glucose 105 Calcium 9.2 Magnesium 1.9 Total Bilirubin 1.3 AST 21 ALT 26 Alkaline Phosphatase 105 Total Protein 5.8 L Albumin 2.9 L Amylase 35 Lipase 116.3 Impressions: Abdomen Ultrasound 06/20/18 18:37 IMPRESSION: 1. Suspected hepatic steatosis and hepatomegaly. 2. Nonspecific peripancreatic echogenicity which further evaluation with CT is recommended. 3. Positive sonographic Holland sign, however the gallbladder appears to be within normal limits without specific sonographic findings noted to suggest etiology of the patient's symptoms. copyright 2010 [employer]- All Rights Reserved Abdomen/Pelvis CT 06/20/18 22:52 IMPRESSION: 1. Extensive stranding about the upper abdominal mesentery surrounding the pancreatic head which appears to be edematous without clear findings to suggest mass, mass effect or fluid collection at this time. However, interval follow-up is recommended following interval resolution of suspected severe pancreatitis. TECHNICAL DOCUMENTATION: Quality ID # 436: Final reports with documentation of one or more dose reduction techniques (e.g., Automated exposure control, adjustment of the mA and/or kV according to patient size, use of iterative reconstruction technique) copyright 2010 [employer]- All Rights Reserved Assessment and Plan - Diagnosis (1) Acute alcoholic pancreatitis Qualifiers: Acute pancreatitis complication: unspecified Qualified Code(s): K85.20 - Alcohol induced acute pancreatitis without necrosis or infection Is this a current diagnosis for this admission?: Yes Plan: Patient be treated with supportive measures and symptomatic cares. This will include IV fluids and analgesia utilizing morphine sulfate 3 to 7.5 mg IV every 2 hours as needed for abdominal pain on a sliding scale basis. Patient will be started on early feeding with supplemental pancreatic enzymes support. Patient will have daily CBCs, metabolic profiles, magnesium levels, amylase and lipase levels obtained. 06/21/2018-patient admitted for severe abdominal pain found to have a pancreatiti s. Is admitting using alcohol on daily basis. Last drink 24 hours prior to the ER of arrival. Watch for the DTs. Start on Ativan 1 mg IV every 2 hours as needed. He is also on Valium. to start on on banana bag daily basis. 06/22/2018-lipase level is 94.7 today able to tolerate liquid diet. Presently on IV Ativan and IV morphine. He is also on IV Valium. Plan to advance the diet to low-sodium diet today. Decreased IV fluids to 75 cc/h today. Plan to discharge him in 24 to hours to 48 hours if everything is okay. 06/23/2018-latest lipase level is around 116 ,stable. Patient able to tolerate the regular diet. To turn off the IV fluids to discontinue IV lorazepam and to cut down morphine to 1 mg IV every 4 as needed. Plan to repeat the labs tomorrow I discussed about a referral to [facility] and to rehab placement but patient refused. (2) Alcohol dependence with withdrawal Qualifiers: Complication of substance-induced condition: uncomplicated Qualified Code(s): F10.230 - Alcohol dependence with withdrawal, uncomplicated Is this a current diagnosis for this admission?: Yes Plan: Patient will be observed closely with Valium 10 mg IV every 1 hour as needed severe delirium, severe anxiety, severe tremor or seizure or hallucinations. 06/21/2018-patient is presently on Valium 10 mg IV every hour as needed and also started on Ativan 1 mg IV every 2 hours as needed. To watch for the DTs. 06/22/2018-patient is on Valium 10 mg IV every hour as needed and also on Ativan 1 mg IV every 2 hours as needed. To watch for the DTs. Also decrease the dose of Valium to 5 mg every hour. 06/23/2018-patient is presently on Valium 5 mg every 4 as needed, lorazepam 1 mg every 2 hours as needed, Thorazine 5 mg IV every 8 as needed, morphine 5 mg IV every 2 hours as needed plan is to discontinue lorazepam decrease morphine to 1 mg IV every 4 as needed. (3) Tobacco use disorder, severe, dependence Is this a current diagnosis for this admission?: Yes Plan: Smoking cessation is advised and counseled briefly. A nicotine patch is available for the patient's use. (4) Adult ADHD (attention deficit hyperactivity disorder) Is this a current diagnosis for this admission?: Yes Plan: Patient will be continued on his usual medications for ADHD this and as he is able to tolerate taking orally. (5) Hypertension Qualifiers: Hypertension type: unspecified Qualified Code(s): I10 - Essential (primary) hypertension Is this a current diagnosis for this admission?: No Plan: 06/22/2018-blood pressure is 146/94 today. Presently on IV fluids at 167/h plan to decrease the fluids to 75 cc/h today. Continue to closely monitor the blood pressures. 06/23/2018-patient blood pressure is 142/94. Presently on IV fluids at 75 cc/h with potassium supplementation plan is to discontinue IV fluids. - Time Time Spent with patient: 15-24 minutes Smoking Cessation Education: over 10 minutes Medications reviewed and adjusted accordingly: Yes Anticipated discharge: Home
[2018-06-23] MEDS: LIPASE/PROTEASE/AMYLASE 1 CAP CAPSULE.DR PO SCH ×3 (08:33→17:00)
[2018-06-23] MEDS: FAMOTIDINE 20 MG TABLET PO SCH ×4 (08:33→21:32)
[2018-06-23] MEDS: METOCLOPRAMIDE HCL 10 MG TABLET PO SCH ×4 (08:33→21:32)
[2018-06-23] MEDS: DOCUSATE SODIUM 100 MG CAPSULE PO SCH ×2 (10:18→17:00)
[2018-06-23] MEDS: CROMOLYN SODIUM NASAL SPRAY (5.2 MG/SPRAY) 26 ML NASL SCH (10:20)
[2018-06-23] MEDS: LEVALBUTEROL HCL NEB 0.63 MG/3 ML AMPUL NEB PRN (16:56)
[2018-06-23] MEDS: MAGNESIUM HYDROXIDE SUSP 30 ML UDCUP PO PRN (21:32)
[2018-06-24] MEDS: MORPHINE SULFATE 10 MG/ML INJ IV PRN ×4 (02:48→19:45)
[2018-06-24] MEDS: ONDANSETRON HCL INJ/PF 4 MG/2 ML SDV IV PRN (02:48)
[2018-06-24 06:04] LABS: ABSOLUTE EOSINOPHILS # (AUTO) 0.1 10^3/uL (0.0-0.6); ABSOLUTE LYMPHOCYTES (AUTO) 0.6 10^3/uL (0.5-4.7); ABSOLUTE MONOCYTES (AUTO) 0.4 10^3/uL (0.1-1.4); BASOPHILS % (AUTO) 0.3 % (0-2); EOSINOPHILS % (AUTO) 1.8 % (0-6); HEMATOCRIT 37.7 % (37.9-51.0); LYMPHOCYTES % (AUTO) 9.7 % (13-45); MEAN CORPUSCULAR HEMOGLOBIN 32.2 pg (27.0-33.4); MEAN CORPUSCULAR HGB CONC 34.4 g/dL (32.0-36.0); MEAN CORPUSCULAR VOLUME 94 fl (80-97); MONOCYTES % (AUTO) 7.1 % (3-13); PLATELET COUNT 318 10^3/uL (150-450); RED BLOOD COUNT 4.02 10^6/uL (4.35-5.55); SEGMENTED NEUTROPHILS % (AUTO) 81.1 % (42-78); TOTAL CELLS COUNTED % (AUTO) 100 %; WHITE BLOOD COUNT 6.1 10^3/uL (4.0-10.5)
[2018-06-24 06:29] LABS: ALANINE AMINOTRANSFERASE 44 U/L (21-72); ALBUMIN 2.9 g/dL (3.5-5.0); ALKALINE PHOSPHATASE 125 U/L (38-126); AMYLASE 34 U/L (30-110); ANION GAP 10 (5-19); ASPARTATE AMINO TRANSFERASE 31 U/L (17-59); BILIRUBIN,DIRECT 0.4 mg/dL (0.0-0.4); BILIRUBIN,TOTAL 0.7 mg/dL (0.2-1.3); BLOOD UREA NITROGEN 9 mg/dL (7-20); CALCIUM 9.2 mg/dL (8.4-10.2); CARBON DIOXIDE 30 mmol/L (22-30); CHLORIDE 98 mmol/L (98-107); GLUCOSE 100 mg/dL (75-110); LIPASE 208.1 U/L (23-300); POTASSIUM 3.6 mmol/L (3.6-5.0); SODIUM 137.9 mmol/L (137-145); TOTAL PROTEIN 5.8 g/dL (6.3-8.2)
[2018-06-24] MEDS: HEPARIN SOD (PORCINE) 5,000 UNIT/ML 1 ML SYRINGE SUBCUT SCH ×3 (07:18→21:32)
[2018-06-24] MEDS: NICOTINE 21 MG/24 HR PATCH.TD24 TD PRN (07:20)
[2018-06-24] MEDS: FAMOTIDINE 20 MG TABLET PO SCH ×4 (08:11→21:33)
[2018-06-24] MEDS: LIPASE/PROTEASE/AMYLASE 1 CAP CAPSULE.DR PO SCH ×3 (08:11→17:11)
[2018-06-24] MEDS: METOCLOPRAMIDE HCL 10 MG TABLET PO SCH ×4 (08:11→21:33)
--- NOTE | 2018-06-24 08:38 | PDOC PROGRESS REPORT ---
Subjective Progress Note for:: 06/24/18 Subjective:: 38 year old male who presented to the emergency room with acute abdominal pain. Patient admits that on the morning prior to admission he gradually developed a constant, acute, moderately intense, throbbing pain in his mid abdomen without localization or radiation. The pain was accompanied by constant nausea and episodic vomiting and was worsened by eating or drinking. He admits numerous prior similar episodes due to his chronic alcoholic pancreatitis and has not identified any other aggravating or ameliorating factors for his pain. His last drink was 06/19/2018. In the emergency room patient was noted to continue to have pain as described and was treated with narcotic analgesics and IV fluids. His ER evaluation showed evidence of pancreatitis on CT scan of the abdomen as well as elevated lipase with a normal amylase. Patient was subsequently admitte d to the hospital for further evaluation and treatment. 06/[id number]-old male admitted for abdominal pain found to have acute pancreatitis urine drug screen is positive for marijuana amphetamines. Also positive for opiates. Serum alcohol level is less than 10. This morning is complaining of sinus pressure sinus problems requesting for nasal spray and also for inhaler for breathing. Is also complaining of pain presently on a clear liquid diet. No acute events since the admission. 06/22/2018-no acute events in the last 24 hours. T-max is 99. Able to tolerate the liquid diet. Comfortably sleeping in the bed woke up on calling and states he is in pain. Plan is to advance the diet today. Repeat lipase level today is 94.7 within normal limits. Potassium is 3.7. Creatinine is 0.74. WBC is 14.6. Plan to repeat the labs tomorrow. 06/23/2018-no acute events in the last 24 hours. Patient is afebrile. T-max is 98.1. Plan is to cut down his morphine to 1 mg every 4 as needed and to stop lorazepam. Plan to continue to resign 25 mg every 8 hours as needed and Valium 5 mg every 4 hours as needed for now. Patient is going to be downgraded to medical floor. Stop IV fluids today. he Able to tolerate the regular diet. 06/24/2018-no acute events in the last 24 hours. Patient is afebrile. Able to tolerate the regular diet. Abdominal pain is improving. Presently is on valium for DTS Reason For Visit: ACUTE RECURRENT ALCOHOLIC PANCREATITIS Physical Exam Vital Signs: Temp Pulse Resp BP Pulse Ox 98.1 F 94 14 131/82 H 93 06/24/18 03:50 06/24/18 03:50 06/24/18 03:50 06/24/18 03:50 06/24/18 03:50 Intake & Output 06/23/18 06/24/18 06/25/18 06:59 06:59 06:59 Intake Total 3338 1739 Balance 3338 1739 Weight 93.3 kg General appearance: PRESENT: no acute distress Head exam: PRESENT: atraumatic Eye exam: PRESENT: PERRLA Mouth exam: PRESENT: moist, tongue midline Neck exam: ABSENT: carotid bruit, JVD, lymphadenopathy, thyromegaly Respiratory exam: PRESENT: decreased breath sounds Cardiovascular exam: PRESENT: RRR. ABSENT: diastolic murmur, rubs, systolic murmur GI/Abdominal exam: PRESENT: normal bowel sounds, soft. ABSENT: distended, guarding, mass, organolmegaly, rebound, tenderness Rectal exam: PRESENT: deferred Extremities exam: PRESENT: full ROM. ABSENT: calf tenderness, clubbing, pedal edema Neurological exam: PRESENT: alert, awake, oriented to person, oriented to place, oriented to time, oriented to situation, CN II-XII grossly intact. ABSENT: motor sensory deficit Psychiatric exam: PRESENT: appropriate affect, normal mood. ABSENT: homicidal ideation, suicidal ideation Results Laboratory Results: 06/24/18 05:03 06/24/18 05:03 06/24/18 06/24/18 05:03 05:03 WBC 6.1 RBC 4.02 L Hgb 13.0 L Hct 37.7 L MCV 94 MCH 32.2 MCHC 34.4 RDW 12.0 Plt Count 318 Seg Neutrophils % 81.1 H Lymphocytes % 9.7 L Monocytes % 7.1 Eosinophils % 1.8 Basophils % 0.3 Absolute Neutrophils 5.0 Absolute Lymphocytes 0.6 Absolute Monocytes 0.4 Absolute Eosinophils 0.1 Absolute Basophils 0.0 Sodium 137.9 Potassium 3.6 Chloride 98 Carbon Dioxide 30 Anion Gap 10 BUN 9 Creatinine 0.67 Est GFR ( Amer) > 60 Est GFR (Non-Af Amer) > 60 Glucose 100 Calcium 9.2 Magnesium 1.8 Total Bilirubin 0.7 AST 31 ALT 44 Alkaline Phosphatase 125 Total Protein 5.8 L Albumin 2.9 L Amylase 34 Lipase 208.1 Impressions: Abdomen Ultrasound 06/20/18 18:37 IMPRESSION: 1. Suspected hepatic steatosis and hepatomegaly. 2. Nonspecific peripancreatic echogenicity which further evaluation with CT is recommended. 3. Positive sonographic Holland sign, however the gallbladder appears to be within normal limits without specific sonographic findings noted to suggest etiology of the patient's symptoms. copyright 2010 [employer]- All Rights Reserved Abdomen/Pelvis CT 06/20/18 22:52 IMPRESSION: 1. Extensive stranding about the upper abdominal mesentery surrounding the pancreatic head which appears to be edematous without clear findings to suggest mass, mass effect or fluid collection at this time. However, interval follow-up is recommended following interval resolution of suspected severe pancreatitis. TECHNICAL DOCUMENTATION: Quality ID # 436: Final reports with documentation of one or more dose reduction techniques (e.g., Automated exposure control, adjustment of the mA and/or kV according to patient size, use of iterative reconstruction technique) copyright 2010 [employer]- All Rights Reserved Assessment and Plan - Diagnosis (1) Acute alcoholic pancreatitis Qualifiers: Acute pancreatitis complication: unspecified Qualified Code(s): K85.20 - Alcohol induced acute pancreatitis without necrosis or infection Is this a current diagnosis for this admission?: Yes Plan: Patient be treated with supportive measures and symptomatic cares. This will include IV fluids and analgesia utilizing morphine sulfate 3 to 7.5 mg IV every 2 hours as needed for abdominal pain on a sliding scale basis. Patient will be started on early feeding with supplemental pancreatic enzymes support. Patient will have daily CBCs, metabolic profiles, magnesium levels, amylase and lipase levels obtained. 06/21/2018-patient admitted for severe abdominal pain found to have a pancreatitis. Is admitting using alcohol on daily basis. Last drink 24 hours prior to the ER of arrival. Watch for the DTs. Start on Ativan 1 mg IV every 2 hours as needed. He is also on Valium. to start on on banana bag daily basis. 06/22/2018-lipase level is 94.7 today able to tolerate liquid diet. Presently on IV Ativan and IV morphine. He is also on IV Valium. Plan to advance the diet to low-sodium diet today. Decreased IV fluids to 75 cc/h today. Plan to discharge him in 24 to hours to 48 hours if everything is okay. 06/23/2018-latest lipase level is around 116 ,stable. Patient able to tolerate the regular diet. To turn off the IV fluids to discontinue IV lorazepam and to cut down morphine to 1 mg IV every 4 as needed. Plan to repeat the labs tomorrow I discussed about a referral to alcohol Anonymous and to rehab placement but patient refused. 06/24/2018-latest lipase is around 200. Able to tolerate the regular diet. After IV fluids. Is also on morphine on as needed basis and IV Valium for DTs. Most likely patient is going to be discharged tomorrow. (2) Alcohol dependence with withdrawal Qualifiers: Complication of substance-induced condition: uncomplicated Qualified Code(s): F10.230 - Alcohol dependence with withdrawal, uncomplicated Is this a current diagnosis for this admission?: Yes Plan: Patient will be observed closely with Valium 10 mg IV every 1 hour as needed severe delirium, severe anxiety, severe tremor or seizure or hallucinations. 06/21/2018-patient is presently on Valium 10 mg IV every hour as needed and also started on Ativan 1 mg IV every 2 hours as needed. To watch for the DTs. 06/22/2018-patient is on Valium 10 mg IV every hour as needed and also on Ativan 1 mg IV every 2 hours as needed. To watch for the DTs. Also decrease the dose of Valium to 5 mg every hour. 06/23/2018-patient is presently on Valium 5 mg every 4 as needed, lorazepam 1 mg every 2 hours as needed, Thorazine 5 mg IV every 8 as needed, morphine 5 mg IV every 2 hours as needed plan is to discontinue lorazepam decrease morphine to 1 mg IV every 4 as needed. 06/24/2018-patient is presently on Thorazine 5 mg IV every 8 as needed, IV morphine 5 mg every 6 hours as needed, Valium 5 mg every 4 as needed. Plan is t o discontinue Thorazine today. (3) Tobacco use disorder, severe, dependence Is this a current diagnosis for this admission?: Yes Plan: Smoking cessation is advised and counseled briefly. A nicotine patch is available for the patient's use. (4) Adult ADHD (attention deficit hyperactivity disorder) Is this a current diagnosis for this admission?: Yes (5) Hypertension Qualifiers: Hypertension type: unspecified Qualified Code(s): I10 - Essential (primary) hypertension Is this a current diagnosis for this admission?: No Plan: 06/22/2018-blood pressure is 146/94 today. Presently on IV fluids at 167/h plan to decrease the fluids to 75 cc/h today. Continue to closely monitor the blood pressures. 06/23/2018-patient blood pressure is 142/94. Presently on IV fluids at 75 cc/h with potassium supplementation plan is to discontinue IV fluids. 06/24/2018-patient blood pressure today is 131/82 stable. He is off the IV fluids. Plan is to check the blood pressures every shift. - Time Time Spent with patient: 15-24 minutes Smoking Cessation Education: over 10 minutes Medications reviewed and adjusted accordingly: Yes Anticipated discharge: Home
[2018-06-24] MEDS: LEVALBUTEROL HCL NEB 0.63 MG/3 ML AMPUL NEB PRN ×2 (08:51→20:28)
[2018-06-24] MEDS: ACETAMINOPHEN 325 MG TABLET PO PRN ×2 (10:04→17:12)
[2018-06-24] MEDS: DOCUSATE SODIUM 100 MG CAPSULE PO SCH ×2 (10:04→17:11)
[2018-06-24] MEDS: CROMOLYN SODIUM NASAL SPRAY (5.2 MG/SPRAY) 26 ML NASL SCH (10:05)
[2018-06-24] MEDS: DIAZEPAM INJ 10 MG/2 ML DISP.SYRIN IV PRN ×2 (10:14→22:15)
[2018-06-25] MEDS: MORPHINE SULFATE 10 MG/ML INJ IV PRN ×2 (00:22→05:32)
[2018-06-25] MEDS: HEPARIN SOD (PORCINE) 5,000 UNIT/ML 1 ML SYRINGE SUBCUT SCH (05:32)
[2018-06-25] MEDS: FAMOTIDINE 20 MG TABLET PO SCH (08:07)
[2018-06-25] MEDS: ACETAMINOPHEN 325 MG TABLET PO PRN (08:07)
[2018-06-25] MEDS: METOCLOPRAMIDE HCL 10 MG TABLET PO SCH (08:07)
[2018-06-25] MEDS: MAGNESIUM HYDROXIDE SUSP 30 ML UDCUP PO PRN (08:10)
[2018-06-25] MEDS: NICOTINE 21 MG/24 HR PATCH.TD24 TD PRN (08:10)
[2018-06-25 09:01] VITALS: BP 138/86
[2018-06-25] MEDS: DOCUSATE SODIUM 100 MG CAPSULE PO SCH (09:24)
[2018-06-25] MEDS: LIPASE/PROTEASE/AMYLASE 1 CAP CAPSULE.DR PO SCH (09:24)
[2018-06-25] MEDS: CROMOLYN SODIUM NASAL SPRAY (5.2 MG/SPRAY) 26 ML NASL SCH (09:29)
--- NOTE | 2018-06-25 10:33 | PDOC DISCHARGE SUMMARY ---
General - Admit/Disc Date/PCP Admission Date/Primary Care Provider: 06/21/18 01:40 Discharge Date: 06/25/18 - Discharge Diagnosis (1) Acute alcoholic pancreatitis Is this a current diagnosis for this admission?: Yes Summary: Patient be treated with supportive measures and symptomatic cares. This will include IV fluids and analgesia utilizing morphine sulfate 3 to 7.5 mg IV every 2 hours as needed for abdominal pain on a sliding scale basis. Patient will be started on early feeding with supplemental pancreatic enzymes support. Patient will have daily CBCs, metabolic profiles, magnesium levels, amylase and lipase levels obtained. 06/21/2018-patient admitted for severe abdominal pain found to have a pancreatitis. Is admitting using alcohol on daily basis. Last drink 24 hours prior to the ER of arrival. Watch for the DTs. Start on Ativan 1 mg IV every 2 hours as needed. He is also on Valium. to start on on banana bag daily basis. 06/22/2018-lipase level is 94.7 today able to tolerate liquid diet. Presently on IV Ativan and IV morphine. He is also on IV Valium. Plan to advance the diet to low-sodium diet today. Decreased IV fluids to 75 cc/h today. Plan to discharge him in 24 to hours to 48 hours if everything is okay. 06/23/2018-latest lipase level is around 116 ,stable. Patient able to tolerate the regular diet. To turn off the IV fluids to discontinue IV lorazepam and to cut down morphine to 1 mg IV every 4 as needed. Plan to repeat the labs t omorrow I discussed about a referral to alcohol Anonymous and to rehab placement but patient refused. 06/24/2018-latest lipase is around 200. Able to tolerate the regular diet. After IV fluids. Is also on morphine on as needed basis and IV Valium for DTs. Most likely patient is going to be discharged tomorrow. 06/25/2018-patient denies any abdominal pain yesterday denies any nausea vomiting diarrhea. Lipase levels are continued to be within normal limits. Patient is going home on lorazepam, Percocet and Pancreaze enzymes. (2) Alcohol dependence with withdrawal Is this a current diagnosis for this admission?: Yes Summary: Patient will be observed closely with Valium 10 mg IV every 1 hour as needed severe delirium, severe anxiety, severe tremor or seizure or hallucinations. 06/21/2018-patient is presently on Valium 10 mg IV every hour as needed and also started on Ativan 1 mg IV every 2 hours as needed. To watch for the DTs. 06/22/2018-patient is on Valium 10 mg IV every hour as needed and also on Ativan 1 mg IV every 2 hours as needed. To watch for the DTs. Also decrease the dose of Valium to 5 mg every hour. 06/23/2018-patient is presently on Valium 5 mg every 4 as needed, lorazepam 1 mg every 2 hours as needed, Thorazine 5 mg IV every 8 as needed, morphine 5 mg IV every 2 hours as needed plan is to discontinue lorazepam decrease morphine to 1 mg IV every 4 as needed. 06/24/2018-patient is presently on Thorazine 5 mg IV every 8 as needed, IV morphine 5 mg every 6 hours as needed, Valium 5 mg every 4 as needed. Plan is to discontinue Thorazine today. 06/25/2018-patient admitted with alcohol dependency and he was placed on IV lorazepam and IV Thorazine ,no acute events in the hospital. She is going home today. Patient is strongly advised to follow-up with primary care physician in 3 to 5 days. (3) Tobacco use disorder, severe, dependence Is this a current diagnosis for this admission?: Yes (4) Adult ADHD (attention deficit hyperactivity disorder) Is this a current diagnosis for this admission?: Yes (5) Hypertension Is this a current diagnosis for this admission?: No Summary: 06/25/2018-patient blood pressure today is 135/76. Stable. Patient advised to be compliant with medications. - Additional Information Resuscitation Status: Full Code Discharge Diet: Cardiac Discharge Activity: Activity As Tolerated Prescriptions: Lipase/Protease/Amylase [Pancreaze-10 Capsule.] 1 cap PO MEALS #90 capsule. Lorazepam [Ativan 1 mg Tablet] 1 mg PO BID #10 tablet Oxycodone HCl/Acetaminophen [Percocet 10-325 Mg Tablet] 1 each PO BID #10 tablet Home Medications: Lipase/Protease/Amylase [Pancreaze-10 Capsule.] 1 cap PO MEALS #90 capsule. 06/25/18 Lorazepam [Ativan 1 mg Tablet] 1 mg PO BID #10 tablet 06/25/18 Oxycodone HCl/Acetaminophen [Percocet 10-325 Mg Tablet] 1 each PO BID #10 tablet 06/25/18 History of Present Illness History of Present Illness: 38 year old male who presented to the emergency room with acute abdominal pain. Patient admits that on the morning prior to admission he gradually developed a constant, acute, moderately intense, throbbing pain in his mid abdomen without localization or radiation. The pain was accompanied by constant nausea and episodic vomiting and was worsened by eating or drinking. He admits numerous prior similar episodes due to his chronic alcoholic pancreatitis and has not identified any other aggravating or ameliorating factors for his pain. His last drink was 06/19/2018. In the emergency room patient was noted to continue to have pain as described and was treated with narcotic analgesics and IV fluids. His ER evaluation showed evidence of pancreatitis on CT scan of the abdomen as w ell as elevated lipase with a normal amylase. Patient was subsequently admitted to the hospital for further evaluation and treatment. Physical Exam Vital Signs: Temp Pulse Resp BP Pulse Ox 97.9 F 78 18 138/86 H 96 06/25/18 09:51 06/25/18 09:51 06/25/18 09:51 06/25/18 09:51 06/25/18 09:51 Intake & Output 06/24/18 06/25/18 06/26/18 06:59 06:59 06:59 Intake Total 1739 1496 Balance 1739 1496 Weight 91.4 kg General appearance: PRESENT: no acute distress Head exam: PRESENT: atraumatic Eye exam: PRESENT: PERRLA Mouth exam: PRESENT: moist, tongue midline Neck exam: ABSENT: carotid bruit, JVD, lymphadenopathy, thyromegaly Respiratory exam: PRESENT: clear to auscultation joseline. ABSENT: rales, rhonchi, wheezes Cardiovascular exam: PRESENT: RRR. ABSENT: diastolic murmur, rubs, systolic murmur GI/Abdominal exam: PRESENT: normal bowel sounds, soft. ABSENT: distended, guarding, mass, organolmegaly, rebound, tenderness Rectal exam: PRESENT: deferred Extremities exam: PRESENT: full ROM. ABSENT: calf tenderness, clubbing, pedal edema Neurological exam: PRESENT: alert, awake, oriented to person, oriented to place, oriented to time, oriented to situation, CN II-XII grossly intact. ABSENT: motor sensory deficit Psychiatric exam: PRESENT: appropriate affect, normal mood. ABSENT: homicidal ideation, suicidal ideation Results Laboratory Results: 06/24/18 05:03 06/24/18 05:03 Impressions: Abdomen Ultrasound 06/20/18 18:37 IMPRESSION: 1. Suspected hepatic steatosis and hepatomegaly. 2. Nonspecific peripancreatic echogenicity which further evaluation with CT is recommended. 3. Positive sonographic Holland sign, however the gallbladder appears to be within normal limits without specific sonographic findings noted to suggest etiology of the patient's symptoms. copyright 2010 [employer]- All Rights Reserved Abdomen/Pelvis CT 06/20/18 22:52 IMPRESSION: 1. Extensive stranding about the upper abdominal mesentery surrounding the pancreatic head which appears to be edematous without clear findings to suggest mass, mass effect or fluid collection at this time. However, interval follow-up is recommended following interval resolution of suspected severe pancreatitis. TECHNICAL DOCUMENTATION: Quality ID # 436: Final reports with documentation of one or more dose reduction techniques (e.g., Automated exposure control, adjustment of the mA and/or kV according to patient size, use of iterative reconstruction technique) copyright 2011 [employer]- All Rights Reserved Qualifiers - * PATIENT BEING DISCHARGED WITH ANY OF THE FOLLOWING DIAGNOSIS: No VTE patient discharged on overlapping Therapy?: No Acute Heart Failure Is this a Heart Failure Patient?: No Plan Discharge Plan: Patient is discharged home today. Time Spent: Greater than 30 Minutes
== END 2018-06-25 10:45 | disposition home or self-care (01) | DRG 439 ==
LOC: ER 17:58 → EH 06-21 01:40 → 3N 06-21 03:00
PROVIDERS: ADMIT Emergency Medicine; ATTEND Emergency Medicine
DX: K85.20 Alcohol induced acute pancreatitis without necrosis or infection (principal); F10.230 Alcohol dependence with withdrawal, uncomplicated; I10 Essential (primary) hypertension; F90.9 Attention-deficit hyperactivity disorder, unspecified type; Y90.0 Blood alcohol level of less than 20 mg/100 ml; F17.210 Nicotine dependence, cigarettes, uncomplicated; Z83.3 Family history of diabetes mellitus; Z82.49 Family history of ischemic heart disease and other diseases of the circulatory system
CPT/HCPCS: 36415; 74177; 76705; 80048; 80053; 80307; 81001; 82150; 83690; 83735; 84439; 84443; 84481; 85025; 94640; 96361; 96374; 96375; 99285; 99406; J1170; J1644; J2060; J2270; J2405; J3360; J3480; J3490; J7030; J7614; J7620

== ENCOUNTER → 2019-06-03 | Outpatient (CLI) | payer OTHER ==
[2019-06-03 17:13] LABS: ABSOLUTE EOSINOPHILS # (AUTO) 0.4 10^3/uL (0.0-0.6); ABSOLUTE LYMPHOCYTES (AUTO) 1.6 10^3/uL (0.5-4.7); ABSOLUTE MONOCYTES (AUTO) 0.3 10^3/uL (0.1-1.4); ABSOLUTE NEUT (AUTO) 6.1 10^3/uL (1.7-8.2); BASOPHILS % (AUTO) 0.4 % (0-2); EOSINOPHILS % (AUTO) 4.7 % (0-6); HEMATOCRIT 44.3 % (37.9-51.0); HEMOGLOBIN 15.5 g/dL (13.5-17.0); MEAN CORPUSCULAR HEMOGLOBIN 30.1 pg (27.0-33.4); MEAN CORPUSCULAR HGB CONC 34.9 g/dL (32.0-36.0); MEAN CORPUSCULAR VOLUME 86 fl (80-97); MONOCYTES % (AUTO) 4.1 % (3-13); PLATELET COUNT 296 10^3/uL (150-450); RED BLOOD COUNT 5.14 10^6/uL (4.35-5.55); RED CELL DISTRIBUTION WIDTH 12.8 % (11.5-14.0); SEGMENTED NEUTROPHILS % (AUTO) 71.8 % (42-78); TOTAL CELLS COUNTED % (AUTO) 100 %; WHITE BLOOD COUNT 8.4 10^3/uL (4.0-10.5)
[2019-06-03 17:33] LABS: URIC ACID 6.2 mg/dL (3.5-8.5)
== END ==
LOC: OD 16:55
PROVIDERS: ATTEND Family Medicine
DX: Z00.00 Encounter for general adult medical examination without abnormal findings (principal)
CPT/HCPCS: 36415; 82150; 83690; 84550; 85025